=== PATIENT | female | born 1940 | race Caucasian/White ===

== ENCOUNTER 2022-11-05 19:41 | Emergency (ER) | payer OTHER ==
[~2022-11-05] VITALS: Ht 157.5 cm; Wt 48.1 kg
[2022-11-05 19:50] VITALS: BP 98/59; PULSE 80; RESP 17; TEMP 97.6; O2SAT 97
[2022-11-05] MEDS ORDERED: ACETAMINOPHEN EXTRA STRENGTH 500 MG TAB PO ONE (20:35)
[2022-11-05] MEDS ORDERED: ACET-2619 PO (21:14)
[2022-11-05 22:32] VITALS: BP 98/59; PULSE 80; RESP 17; TEMP 97.6; O2SAT 97
== END 2022-11-05 22:32 | disposition home or self-care (01) ==
LOC: MED 19:41
DX: S16.1XXA Strain of muscle, fascia and tendon at neck level, initial encounter (principal); S09.90XA Unspecified injury of head, initial encounter; Z88.0 Allergy status to penicillin; Z79.899 Other long term (current) drug therapy; W01.0XXA Fall on same level from slipping, tripping and stumbling without subsequent striking against object, initial encounter; Y93.89 Activity, other specified; Y92.59 Other trade areas as the place of occurrence of the external cause; Y99.8 Other external cause status
CPT/HCPCS: 70450; 72125; 99284